=== PATIENT | male | born 1975 | race Two or more races ===

== ENCOUNTER 2022-08-04 11:06 | Outpatient (CLI) | payer OTHER | END 2022-08-04 11:08 | disposition home or self-care (01) | LOC: LAB 11:06 | PROVIDERS: ATTEND Specialist | DX: E78.1 Pure hyperglyceridemia (principal); E03.9 Hypothyroidism, unspecified; I10 Essential (primary) hypertension ==

== ENCOUNTER 2023-03-07 09:05 | Outpatient (CLI) | payer OTHER | END 2023-03-07 09:06 | disposition home or self-care (01) | LOC: LAB 09:05 | PROVIDERS: ATTEND Specialist | DX: E78.5 Hyperlipidemia, unspecified (principal); I10 Essential (primary) hypertension; E03.8 Other specified hypothyroidism ==